=== PATIENT | female | born 1990 | race Caucasian/White ===

== ENCOUNTER 2017-10-26 10:10 | Outpatient (CLI) | payer OTHER | END 2017-10-26 12:12 | disposition home or self-care (01) | LOC: M LDO 10:10 | DX: O99.89 Other specified diseases and conditions complicating pregnancy, childbirth and the puerperium (principal); R10.9 Unspecified abdominal pain; Z3A.38 38 weeks gestation of pregnancy | CPT/HCPCS: 59025 ==

== ENCOUNTER 2017-10-29 00:44 | Inpatient (IN) | payer OTHER ==
[2017-10-29] MEDS ORDERED: LR 1,000 ML IV (01:51)
[2017-10-29 02:12] LABS: HEMATOCRIT 28.8 % (36.0-47.0); HEMOGLOBIN 9.1 g/dl (12.0-16.0); MEAN CORPUSCULAR HGB CONC 31.6 g/dl (32.0-36.5); MEAN CORPUSCULAR VOLUME 79.1 fl (80.0-96.0); PLATELET COUNT, AUTOMATED 214 10^3/uL (150-450); RED BLOOD COUNT 3.64 10^6/uL (4.00-5.40); RED CELL DISTRIBUTION WIDTH 14.6 % (11.5-14.5); WHITE BLOOD COUNT 6.5 10^3/uL (4.0-10.0)
[2017-10-29] MEDS: LACTATED RINGER'S 1000 ML IV (02:17)
[2017-10-29] MEDS: BICITRA 30ML SOLN UDC PO (02:19)
[2017-10-29] MEDS ORDERED: ONDANSETRON 4MG/2ML VIAL (J2405) IV ×2 (02:58→04:00)
[2017-10-29] MEDS ORDERED: NALOXONE INJ 0.4 MG/1 ML VIAL (J2310) IV ×2 (02:58)
[2017-10-29] MEDS ORDERED: METOCLOPRAMIDE INJ 10MG/2ML VIAL (J2765) IV ×3 (02:58→04:15)
[2017-10-29 03:06] LABS: AMPHETAMINES URINE REFLEX NEGATIVE (NEGATIVE); BARBITURATES URINE REFLEX NEGATIVE (NEGATIVE); BENZODIAZEPINES URINE REFLEX NEGATIVE (NEGATIVE); CANNABINOIDS URINE REFLEX NEGATIVE (NEGATIVE); COCAINE METABOLITE URINE REFLE NEGATIVE (NEGATIVE); METHADONE URINE REFLEX NEGATIVE (NEGATIVE); OPIATES URINE REFLEX NEGATIVE (NEGATIVE); PHENCYCLIDINE URINE REFLEX NEGATIVE (NEGATIVE)
[2017-10-29] MEDS: LR 1,000 ML IV ×4 (04:00→17:38)
[2017-10-29] MEDS ORDERED: fentaNYL 100 MCG/2 ML INJECTION (J3010) IV (04:00)
[2017-10-29] MEDS ORDERED: PERCOCET 5MG/325MG TAB PO ×2 (04:00→04:15)
[2017-10-29 04:08] LABS: CORD GAS ABE A -4.7; CORD GAS HCO3 V 20.3 MEQ/L; CORD GAS O2 SAT A < 15.0 %; CORD GAS O2 SAT V 61.8 %; CORD GAS PCO2 A 67.8 mmHg; CORD GAS PCO2 V 42.4 mmHg; CORD GAS PH A 7.185 UNITS; CORD GAS PH V 7.297 UNITS; CORD GAS PO2 V 26.6 mmHg; CORD GAS SBC V 18.8 MEQ/L; CORD GAS TCO2 A 27.1 MEQ/L; CORD GAS TCO2 V 21.6 MEQ/L
[2017-10-29] MEDS ORDERED: MEASLES,MUMPS,RUBELLA VACCINE INJ (MMR-II) (90707) SC (04:15)
[2017-10-29] MEDS ORDERED: RHOGAM 300 MCG (1500 IU) INJ (J2790) IM (04:15)
[2017-10-29 07:04] LABS: HBSAG L&D NEGATIVE (NEGATIVE)
[2017-10-29] MEDS: PRENATAL VITAMINS CHEWABLE TABLET PO (08:10)
[2017-10-29] MEDS: DOCUSATE SODIUM 100 MG CAP PO ×2 (08:10→21:18)
[2017-10-29] MEDS: NALBUPHINE HCL 10 MG/ML AMP (J2300) IV (08:33)
[2017-10-29] MEDS: KETOROLAC 30 MG/ML VIAL (J1885) IV ×3 (09:58→21:18)
[2017-10-30] MEDS: KETOROLAC 30 MG/ML VIAL (J1885) IV (03:55)
[2017-10-30] MEDS: LR 1,000 ML IV (04:05)
[2017-10-30 07:08] LABS: HEMATOCRIT 24.3 % (36.0-47.0); HEMOGLOBIN 7.6 g/dl (12.0-16.0); MEAN CORPUSCULAR HEMOGLOBIN 25.2 pg (27.0-33.0); MEAN CORPUSCULAR HGB CONC 31.3 g/dl (32.0-36.5); MEAN CORPUSCULAR VOLUME 80.7 fl (80.0-96.0); PLATELET COUNT, AUTOMATED 188 10^3/uL (150-450); RED BLOOD COUNT 3.01 10^6/uL (4.00-5.40); RED CELL DISTRIBUTION WIDTH 14.7 % (11.5-14.5); WHITE BLOOD COUNT 7.1 10^3/uL (4.0-10.0)
[2017-10-30] MEDS: PRENATAL VITAMINS CHEWABLE TABLET PO (08:52)
[2017-10-30] MEDS: DOCUSATE SODIUM 100 MG CAP PO ×2 (08:53→20:00)
[2017-10-30] MEDS: IBUPROFEN 800 MG TAB PO ×2 (12:17→20:00)
[2017-10-31] MEDS: PERCOCET 5MG/325MG TAB PO (00:52)
[2017-10-31] MEDS: IBUPROFEN 800 MG TAB PO ×2 (03:13→11:57)
[2017-10-31] MEDS: DOCUSATE SODIUM 100 MG CAP PO (09:50)
[2017-10-31] MEDS: PRENATAL VITAMINS CHEWABLE TABLET PO (09:50)
== END 2017-10-31 13:30 | disposition home or self-care (01) | DRG 766 ==
LOC: M LDO 00:44 → M LDI 01:52 → M OBS 05:45
PROVIDERS: Obstetrics & Gynecology
PROC: 10D00Z1 Extraction of Products of Conception, Low, Open Approach (ICD-10-PCS; principal; 2017-10-31 02:48)
DX: O45.93 Premature separation of placenta, unspecified, third trimester (principal); O34.211 Maternal care for low transverse scar from previous cesarean delivery; Z3A.39 39 weeks gestation of pregnancy; N94.89 Other specified conditions associated with female genital organs and menstrual cycle; O26.893 Other specified pregnancy related conditions, third trimester; O99.89 Other specified diseases and conditions complicating pregnancy, childbirth and the puerperium; Z37.0 Single live birth; O99.03 Anemia complicating the puerperium; D64.9 Anemia, unspecified